=== PATIENT | male | born 1955 ===

== ENCOUNTER 2023-07-15 10:45 | Inpatient (IN) | payer OTHER ==
[~2023-07-15] VITALS: Ht 170.2 cm; Wt 72.6 kg
[2023-07-21] MEDS ORDERED: METRONIDAZOLE/SODIUM CHLORIDE 500 MG/100 ML PIGGYBACK IV ONE ×2 (06:01→09:00)
[2023-07-21] MEDS ORDERED: BUPIVACAINE HCL/PF 0.5% 30ML ML ONE (06:54)
[2023-07-21] MEDS ORDERED: LIDOCAINE HCL/EPINEPHRINE 10MG/ML 1% 50ML IJ ONE ×2 (06:55→09:00)
[2023-07-21] MEDS ORDERED: BUPIVACAINE HCL/PF 0.5% 1ML ONE (06:56)
[2023-07-21] MEDS ORDERED: BUPIVACAINE HCL/PF 0.5% 1ML IJ ONE (09:00)
[2023-07-21] MEDS ORDERED: levoFLOXacin IN DEXTROSE 5 % 5 MG/ML PIGGYBAG IV ONE (09:00)
== END 2023-07-23 12:47 | disposition home or self-care (01) | DRG 399 ==
LOC: O/R 07-21 05:22 → SURH 07-21 07:00 → O/R 07-23 12:47
PROVIDERS: ADMIT Colon & Rectal Surgery; ATTEND Colon & Rectal Surgery
PROC: 0DTJ4ZZ Resection of Appendix, Percutaneous Endoscopic Approach (ICD-10-PCS; principal; 2023-07-21 07:00)
DX: K63.5 Polyp of colon (principal); R59.0 Localized enlarged lymph nodes